=== PATIENT | female | born 1945 | race Caucasian/White ===

== ENCOUNTER 2023-12-27 06:37 | Inpatient (IN) | payer MEDICARE, OTHER ==
[~2023-12-27] VITALS: Ht 157.5 cm; Wt 58.1 kg
[2023-12-27] MEDS ORDERED: VANCOMYCIN 1 GM in IV D5W 250ml IV ONE (07:30)
[2023-12-27] MEDS ORDERED: FENTANYL PF 100MCG/2ML AMPUL ONE (07:30)
[2023-12-27 11:00] VITALS: BP 138/40; TEMP 98.7; O2SAT 97
[2023-12-27] MEDS: IV NS 0.9% 1,000 ML IV PRN (11:13)
[2023-12-27] MEDS ORDERED: ONDANSETRON HCL/PF 4 MG/2 ML VIAL IV PRN (11:30)
[2023-12-27] MEDS ORDERED: ACETAMINOPHEN 325 MG TABLET PO PRN ×2 (11:30→12:30)
[2023-12-27] MEDS ORDERED: hydrALAZINE HCL IV 20 MG VIAL IV PRN (12:30)
[2023-12-27] MEDS ORDERED: DEXTROSE 50%-WATER 50 ML DISP.SYRIN IV PRN (12:30)
[2023-12-27] MEDS ORDERED: ONDANSETRON HCL/PF 4 MG/2 ML VIAL IVP PRN (12:30)
[2023-12-27] MEDS: HYDROMORPHONE 1 MG/1 ML DISP.SYRIN IV PRN (12:51)
[2023-12-27] MEDS ORDERED: ISOS60TA72 PO (15:14)
[2023-12-27] MEDS ORDERED: ASPI-1420 PO (15:14)
[2023-12-27] MEDS ORDERED: RANO500T6 PO (15:14)
[2023-12-27] MEDS ORDERED: FENO160T PO (15:14)
[2023-12-27] MEDS ORDERED: ATEN50TA PO (15:14)
[2023-12-27] MEDS ORDERED: LEVO25TA7 PO (15:14)
[2023-12-27] MEDS ORDERED: LISI20TA30 PO (15:14)
[2023-12-27] MEDS ORDERED: ICOS1CAP PO (15:14)
[2023-12-27] MEDS ORDERED: INSU100I26 SQ (15:14)
[2023-12-27] MEDS ORDERED: CANA1TAB8 PO (15:14)
[2023-12-27] MEDS ORDERED: MOUNJARO SQ (15:14)
[2023-12-27] MEDS ORDERED: ROSU40TA23 PO (15:14)
[2023-12-27] MEDS ORDERED: CLOP75TA15 PO (15:14)
[2023-12-27] MEDS: INSULIN REGULAR, HUMAN 100 UNIT/ML 3 ML VIAL SQ PRN (16:39)
[2023-12-27] MEDS: BLOOD SUGAR DIAGNOSTIC 1 EACH STRIP IN SCH (16:39)
[2023-12-27] MEDS ORDERED: CANAGLIFLOZIN PO SCH (17:00)
[2023-12-27] MEDS ORDERED: [UNRECOGNIZED DRUG - OTHER] PO SCH (17:00)
[2023-12-27] MEDS ORDERED: METFORMIN HCL PO SCH (17:00)
[2023-12-27 20:00] VITALS: BP 109/43; TEMP 98.4; O2SAT 97
[2023-12-27] MEDS: VANCOMYCIN 1 GM in IV D5W 250ml IV SCH (20:38)
[2023-12-27] MEDS: RANOLAZINE 500 MG TAB.ER.12H PO SCH (21:50)
[2023-12-28] MEDS: LEVOTHYROXINE SODIUM 25 MCG TABLET PO SCH (07:30)
[2023-12-28 08:00] VITALS: BP 109/50; TEMP 97.7; O2SAT 97
[2023-12-28] MEDS: FENOFIBRATE NANOCRYS (145 MG) 145 MG TABLET PO SCH (08:10)
[2023-12-28] MEDS: ASPIRIN EC 81 MG TABLET.DR PO SCH (08:10)
[2023-12-28] MEDS: ATORVASTATIN 40 MG TABLET PO SCH (08:10)
[2023-12-28] MEDS: CLOPIDOGREL BISULFATE 75 MG TABLET PO SCH (08:10)
[2023-12-28] MEDS: ATENOLOL 50 MG TABLET PO SCH (08:11)
[2023-12-28 08:12] VITALS: BP 109/50
[2023-12-28] MEDS: ISOSORBIDE MONONITRATE (30MG) 30 MG TAB.SR.24H PO SCH (08:12)
[2023-12-28] MEDS ORDERED: Medication Not On Formulary EA (Icosapent Ethyl (Vascepa) 1 GM) PO SCH (09:00)
[2023-12-28] MEDS: INSULIN GLARGINE, 100 UNIT/ML CARTRIDGE SQ SCH (09:00)
[2023-12-28] MEDS: LISINOPRIL (20MG) 20 MG TABLET PO SCH (09:00)
== END 2023-12-28 13:24 | disposition home or self-care (01) | DRG 516 ==
LOC: DS 06:37 → MED 06:39
PROVIDERS: ADMIT Internal Medicine; ATTEND Internal Medicine
PROC: 0NST04Z Reposition Right Mandible with Internal Fixation Device, Open Approach (ICD-10-PCS; principal; 2023-12-27)
PROC: 0NUT07Z Supplement Right Mandible with Autologous Tissue Substitute, Open Approach (ICD-10-PCS; 2023-12-27)
PROC: 0NSR04Z Reposition Maxilla with Internal Fixation Device, Open Approach (ICD-10-PCS; 2023-12-27)
PROC: 0NUR07Z Supplement Maxilla with Autologous Tissue Substitute, Open Approach (ICD-10-PCS; 2023-12-27)
PROC: 0NBT0ZX Excision of Right Mandible, Open Approach, Diagnostic (ICD-10-PCS; 2023-12-27)
PROC: 0NBR0ZX Excision of Maxilla, Open Approach, Diagnostic (ICD-10-PCS; 2023-12-27)
DX: S02.69XK Fracture of mandible of other specified site, subsequent encounter for fracture with nonunion (principal); T81.83XA Persistent postprocedural fistula, initial encounter; S02.40CK Maxillary fracture, right side, subsequent encounter for fracture with nonunion; S02.40DK Maxillary fracture, left side, subsequent encounter for fracture with nonunion; X58.XXXD Exposure to other specified factors, subsequent encounter; M27.2 Inflammatory conditions of jaws; E03.9 Hypothyroidism, unspecified; E78.5 Hyperlipidemia, unspecified; D16.4 Benign neoplasm of bones of skull and face; E11.9 Type 2 diabetes mellitus without complications; J32.0 Chronic maxillary sinusitis; Z88.0 Allergy status to penicillin
CPT/HCPCS: 82962-TC; A4223; C1713; G0378; J1100; J1170; J1815; J2405; J2704; J3010; J3370; J3490; J7030; J7050; J7060

== ENCOUNTER 2024-08-28 09:43 | Inpatient (IN) | payer MEDICARE, OTHER ==
[2024-08-28] VITALS (8 sets, daily range): BP systolic 91–132; BP diastolic 37–56; TEMP 98–98.5; O2SAT 99–100
[~2024-08-28 09:43] MED LIST: ASPI-1420 PO; ATEN50TA PO; CANA1TAB8 PO; CLOP75TA15 PO; FENO160T PO; ICOS1CAP PO; INSU100I26 SQ; ISOS60TA72 PO; LEVO25TA7 PO; LISI20TA30 PO; MOUNJARO SQ; RANO500T6 PO; ROSU40TA23 PO
[2024-08-28] MEDS ORDERED: hydrALAZINE HCL IV 20 MG VIAL ONE (11:41)
[2024-08-28] MEDS ORDERED: NITROGLYCERIN 0.4 MG/TAB BOTTLE ONE (13:15)
[2024-08-28] MEDS: NITROGLYCERIN 0.4 MG/TAB BOTTLE SL STA (13:19)
[2024-08-28] MEDS: ISOSORBIDE MONONITRATE (30MG) 30 MG TAB.SR.24H PO SCH (14:00)
[2024-08-28] MEDS: ATENOLOL 50 MG TABLET PO ONE (14:00)
[2024-08-28] MEDS ORDERED: ACETAMINOPHEN 325 MG TABLET PO PRN ×2 (15:30→16:00)
[2024-08-28] MEDS ORDERED: ONDANSETRON HCL/PF 4 MG/2 ML VIAL IV PRN (15:30)
[2024-08-28] MEDS ORDERED: INSU100I26 SQ (15:52)
[2024-08-28] MEDS ORDERED: DAPA10TA PO (15:53)
[2024-08-28] MEDS ORDERED: CHLO25TA2 PO (15:54)
[2024-08-28] MEDS ORDERED: ONDANSETRON HCL/PF 4 MG/2 ML VIAL IVP PRN (16:00)
[2024-08-28] MEDS: IV NS 0.9% 1,000 ML IV PRN (16:00)
[2024-08-28] MEDS ORDERED: MAGNESIUM HYDROXIDE 30 ML UDC PO PRN (16:00)
[2024-08-28] MEDS ORDERED: DEXTROSE 50%-WATER 50 ML DISP.SYRIN IV PRN (16:00)
[2024-08-28] MEDS ORDERED: MAG HYDROX/AL HYDROX/SIMETH 30 ML UDC PO PRN (16:00)
[2024-08-28] MEDS: HYDROMORPHONE 1 MG/1 ML DISP.SYRIN IV PRN (16:47)
[2024-08-28] MEDS: CLOPIDOGREL BISULFATE 75 MG TABLET PO ONE (16:48)
[2024-08-28] MEDS: FENOFIBRATE NANOCRYS (145 MG) 145 MG TABLET PO SCH (16:48)
[2024-08-28] MEDS: BLOOD SUGAR DIAGNOSTIC 1 EACH STRIP IN SCH (17:10)
[2024-08-28] MEDS: INSULIN REGULAR, HUMAN 100 UNIT/ML 3 ML VIAL SQ PRN (17:13)
[2024-08-28] MEDS: RANOLAZINE 500 MG TAB.ER.12H PO SCH (20:11)
[2024-08-28] MEDS: VANCOMYCIN 1 GM in IV D5W 250ml IV SCH (21:00)
[2024-08-28] MEDS: ATORVASTATIN 40 MG TABLET PO SCH (21:02)
[2024-08-29] VITALS (11 sets, daily range): BP systolic 91–111; BP diastolic 32–42; TEMP 98–98.7; O2SAT 99–100
[2024-08-29 04:48] LABS: BASOPHILS # (AUTO) 0.1 K/uL (0.0-0.2); BASOPHILS % (AUTO) 0.3 % (0.0-2.0); EOSINOPHILS % (AUTO) 0.1 % (0.0-6.0); HEMATOCRIT 37 % (33-45); HEMOGLOBIN 12.1 g/dL (11.5-14.8); LYMPHOCYTES # (AUTO) 1.9 K/uL (0.8-4.8); LYMPHOCYTES % (AUTO) 12.2 % (20.0-44.0); MEAN CORPUSCULAR HEMOGLOBIN 27 PG (26.0-33.0); MEAN CORPUSCULAR HGB CONC 33 g/dl (31.0-36.0); MEAN CORPUSCULAR VOLUME 82 fL (82-100); MONOCYTES # (AUTO) 1.2 K/uL (0.1-1.30); MONOCYTES % (AUTO) 8.1 % (2.0-12.0); NEUTROPHILS # (AUTO) 12.2 K/uL (1.8-8.9); NEUTROPHILS % (AUTO) 79.3 % (43.0-81.0); PLATELET COUNT (AUTO) 244 K/uL (150-450); RED BLOOD CELL COUNT(AUTO) 4.56 MIL/uL (4.0-5.2); RED CELL DISTRIBUTION WIDTH 15.2 % (11.5-15.0); WHITE BLOOD COUNT (AUTO) 15.4 K/uL (4.3-11.0)
[2024-08-29 05:07] LABS: CALCIUM, SERUM 8.5 mg/dL (8.5-10.1); CREATININE 1.2 mg/dL (0.6-1.3); PHOSPHORUS 4.7 mg/dL (2.5-4.9); POTASSIUM 4.6 mmol/L (3.5-5.1)
[2024-08-29] MEDS: LEVOTHYROXINE SODIUM 25 MCG TABLET PO SCH (07:59)
[2024-08-29] MEDS: ASPIRIN EC 81 MG TABLET.DR PO SCH (08:09)
[2024-08-29] MEDS: CLOPIDOGREL BISULFATE 75 MG TABLET PO SCH (08:09)
[2024-08-29] MEDS: LISINOPRIL (20MG) 20 MG TABLET PO SCH (08:10)
== END 2024-08-29 13:18 | disposition home or self-care (01) | DRG 908 ==
LOC: DS 09:43 → ICU 15:28
PROVIDERS: ADMIT Nurse Practitioner Acute Care; ATTEND Nurse Practitioner Acute Care
PROC: 0N5R0ZZ Destruction of Maxilla, Open Approach (ICD-10-PCS; 2024-08-28)
PROC: 0NSV04Z Reposition Left Mandible with Internal Fixation Device, Open Approach (ICD-10-PCS; 2024-08-28)
PROC: 0NSR04Z Reposition Maxilla with Internal Fixation Device, Open Approach (ICD-10-PCS; 2024-08-28)
PROC: 0NUV07Z Supplement Left Mandible with Autologous Tissue Substitute, Open Approach (ICD-10-PCS; 2024-08-28)
PROC: 0NUR07Z Supplement Maxilla with Autologous Tissue Substitute, Open Approach (ICD-10-PCS; 2024-08-28)
PROC: 0WB30ZZ Excision of Oral Cavity and Throat, Open Approach (ICD-10-PCS; 2024-08-28)
PROC: 0NPW04Z Removal of Internal Fixation Device from Facial Bone, Open Approach (ICD-10-PCS; 2024-08-28)
PROC: 0N5V0ZZ Destruction of Left Mandible, Open Approach (ICD-10-PCS; principal; 2024-08-28 12:40)
DX: T86.831 Bone graft failure (principal); M87.9 Osteonecrosis, unspecified; S02.40CK Maxillary fracture, right side, subsequent encounter for fracture with nonunion; S02.40DK Maxillary fracture, left side, subsequent encounter for fracture with nonunion; X58.XXXD Exposure to other specified factors, subsequent encounter; E11.9 Type 2 diabetes mellitus without complications; I25.119 Atherosclerotic heart disease of native coronary artery with unspecified angina pectoris; I10 Essential (primary) hypertension; Z88.0 Allergy status to penicillin; Y83.2 Surgical operation with anastomosis, bypass or graft as the cause of abnormal reaction of the patient, or of later complication, without mention of misadventure at the time of the procedure; K13.70 Unspecified lesions of oral mucosa; J32.0 Chronic maxillary sinusitis
CPT/HCPCS: 36415; 80048-TC; 82962-TC; 83735-TC; 84100-TC; 84484-TC; 85025-TC; 85378-TC; 85730-TC; 93970-TC; A4223; A4338; G0378; J0360; J1171; J1815; J2704; J3370; J3490; J7060